=== PATIENT | male | born 1975 | race Caucasian/White ===

== ENCOUNTER 2017-05-14 07:56 | Emergency (ER) | payer BC, OTHER ==
[2017-05-14 08:10] VITALS: BP 141/98
[2017-05-14] MEDS ORDERED: Ciprofloxacin 0.3% OPTH.SOL* 2.5 ML BTL ONE (08:18)
[2017-05-14] MEDS ORDERED: Ciprofloxacin 0.3% OPTH.SOL* 2.5 ML BTL BOTH EYES ONE (08:19)
--- NOTE | 2017-05-14 08:20 | UC ---
Ear Complaint HPI - HPI Summary HPI Summary: right ear painful draining swollen----worsening over 3 days - History of Current Complaint Chief Complaint: UCEar Stated Complaint: EAR PAIN Time Seen by Provider: 05/14/17 08:17 Hx Obtained From: Patient Onset/Duration: Gradual Onset, Lasting Days - 3 Severity Initially: Mild Severity Currently: Moderate Pain Intensity: 7 Pain Scale Used: 0-10 Numeric Aggravating Factors: Nothing Alleviating Factors: Nothing Associated Signs/Symptoms: Positive: Hearing Loss, Swelling @ - right ear canal - Allergies/Home Medications Allergies/Adverse Reactions: Allergies Allergy/AdvReac Type Severity Reaction Status Date / Time No Known Allergies Allergy Verified 05/14/17 08:07 Home Medications: Home Medications Ibuprofen TAB* [Advil TAB*] 800 mg PO Q8H PRN 05/14/17 [History Confirmed ] Simvastatin TAB(NF) [Zocor(NF)] 10 mg PO DAILY 05/14/17 [History Confirmed 05/14] amLODIPine TAB* [Norvasc 5 mg TAB*] 10 mg PO DAILY 05/14/17 [History Confirmed 05/14/17] metFORMIN* [Glucophage 500 MG TAB *] 500 mg PO BID 05/14/17 [History Confirmed 05/14/17] PMH/Surg Hx/FS Hx/Imm Hx Previously Healthy: No Endocrine History: Diabetes, Dyslipidemia Cardiovascular History: Hypertension Psychological History: Depression - Surgical History Surgical History: Yes Surgery Procedure, Year, and Place: Left Knee Arthroscopy, 1991, [place]; Tonsilectomy, ~1979's - Social History Occupation: Employed Full-time Lives: With Family Alcohol Use: Occasionally Substance Use Type: None Smoking Status (MU): Former Smoker Type: Cigarettes Amount Used/How Often: 1/2-3/4 PPD Length of Time of Smoking/Using Tobacco: Since Age 16 Have You Smoked in the Last Year: Yes When Did the Patient Quit Smoking/Using Tobacco: 05/11/17 - Immunization History Most Recent Influenza Vaccination: Not the Season Review of Systems Constitutional: Fever - subjective, Chills Skin: Negative Eyes: Negative ENT: Ear Ache - right Respiratory: Negative Cardiovascular: Negative Gastrointestinal: Negative Genitourinary: Negative Motor: Negative Neurovascular: Negative Musculoskeletal: Negative Neurological: Negative Psychological: Negative Is Patient Immunocompromised?: Yes All Other Systems Reviewed And Are Negative: Yes Physical Exam Triage Information Reviewed: Yes Appearance: Well-Appearing, No Pain Distress, Well-Nourished Vital Signs: Initial Vital Signs Temp 99 F 05/14/17 08:05 Pulse 109 05/14/17 08:05 Resp 18 05/14/17 08:05 BP 141/98 05/14/17 08:05 Pulse Ox 100 05/14/17 08:05 Vital Signs Reviewed: Yes Eye Exam: Normal Eyes: Positive: Conjunctiva Clear ENT Exam: Normal ENT: Positive: Normal ENT inspection, Hearing grossly normal, Pharynx normal, Other: - right canal swollen with purulent drainage, left ear cerumen impaction- --wnl after cerumen removed. Negative: Nasal congestion, Nasal drainage, Tonsillar swelling, Tonsillar exudate, Trismus, Muffled/hoarse voice Dental Exam: Normal Neck exam: Normal Neck: Positive: Supple, Nontender Respiratory Exam: Normal Respiratory: Positive: Chest non-tender, Lungs clear, Normal breath sounds, No respiratory distress, No accessory muscle use Cardiovascular Exam: Normal Cardiovascular: Positive: RRR, No Murmur, Pulses Normal, Brisk Capillary Refill Musculoskeletal Exam: Normal Musculoskeletal: Positive: Strength Intact, ROM Intact, No Edema Neurological Exam: Normal Neurological: Positive: Alert, Muscle Tone Normal Psychological Exam: Normal Skin Exam: Normal Re-Evaluation - Re-Evaluation First Eval Change: Improved - ear wick in right ear-patient reports increase comfort, left ear cerumen impaction resolved Ear Complaint Course/Dx - Course Course Of Treatment: cipro drops (provided to patient) bid for 7 days, tylrnol, ibuprofen for pain - Differential Dx/Diagnosis Differential Diagnosis/HQI/PQRI: Cerumen Impaction, Otitis Externa, Otitis Media , URI Provider Diagnoses: right ear otitis externa, left ear resolved cerumen impaction Discharge - Discharge Plan Condition: Stable Disposition: HOME Patient Education Materials: Otitis Externa (ED), Cerumen Impaction (ED), Hypertension (ED) Referrals: Silvestre Pickens MD [Primary Care Provider] - If Needed Additional Instructions: 4 drops of Cipro (eye--ok to use in ears) drops in right ear 2 times a day for 7 days---The ear wick will fall out in the next few days just throw it away (on its own do not insert-)--
== END 2017-05-14 08:54 | disposition home or self-care (01) ==
LOC: UCCORT 07:56
DX: H60.91 Unspecified otitis externa, right ear (principal); H61.22 Impacted cerumen, left ear; E11.9 Type 2 diabetes mellitus without complications; Z79.84 Long term (current) use of oral hypoglycemic drugs; E78.5 Hyperlipidemia, unspecified; I10 Essential (primary) hypertension; F32.9 Major depressive disorder, single episode, unspecified; Z87.891 Personal history of nicotine dependence
CPT/HCPCS: 99203; A9270-GY; G0463

== ENCOUNTER 2018-06-23 10:51 | Emergency (ER) | payer BC, OTHER ==
[2018-06-23 11:15] VITALS: BP 142/98
--- NOTE | 2018-06-23 11:32 | UC ---
Ear Complaint HPI - HPI Summary HPI Summary: Patient presents complaining of progressive right ear pain and fullness. Patient states it felt little swollen to the washing with hydroperoxide over the last 5 days. Patient states progressively getting worse. Patient states his hearing feels muffled. Patient with some whitish drainage from the ear. No fevers or chills. No mastoid pain. No sore throat. No difficulty swallowing. No analgesia taken. Patient without history of similar. Patient went denies trauma. Patient is on metformin for diabetes. Patient tetanus is up-to-date. Medications reviewed - History of Current Complaint Chief Complaint: UCEar Stated Complaint: RT EAR COMPLAINT Time Seen by Provider: 06/23/18 11:27 Hx Obtained From: Patient Pain Intensity: 1 - Allergies/Home Medications Allergies/Adverse Reactions: Allergies Allergy/AdvReac Type Severity Reaction Status Date / Time No Known Allergies Allergy Verified 05/14/17 08:07 PMH/Surg Hx/FS Hx/Imm Hx Previously Healthy: Yes Endocrine History: Diabetes - Surgical History Surgical History: Yes Surgery Procedure, Year, and Place: Left Knee Arthroscopy, 1991, [place]; Tonsilectomy, ~ - Family History Known Family History: Positive: Other - Noncontributory - Social History Occupation: Employed Part-time, Student Lives: With Family Alcohol Use: Daily Substance Use Type: None Smoking Status (MU): Light Every Day Tobacco Smoker Type: Cigarettes Amount Used/How Often: 1/2-3/4 PPD Length of Time of Smoking/Using Tobacco: Since Age 16 Have You Smoked in the Last Year: Yes When Did the Patient Quit Smoking/Using Tobacco: 05/11/17 - Immunization History Most Recent Influenza Vaccination: Not the Season Review of Systems Constitutional: Negative Skin: Negative ENT: Ear Ache All Other Systems Reviewed And Are Negative: Yes Physical Exam - Summary Physical Exam Summary: Vital Signs Reviewed: Yes A+Ox3, no distress Eyes: Conjunctiva Clear, REUBEN. EOM intact and full ENT: Hearing grossly normal right ear: + edema and erythema right external auditory canal. no drainage. Unable to visualize canal. Placed a wick without difficulty left TM wnl, no matsoid pain turbinates wnl, mmoist, uvula midline , no exudate, no erythema Neck: Positive: Supple Respiratory: Positive: No respiratory distress, No accessory muscle use + CTA throughout no w/r Cardiovascular: RRR nl s1, s2 no m/r CBT <2 sec abd soft + BS nt/nd no guarding, no distension Musculoskeletal Exam: JENKINS x 4 without difficulty Strength Intact, ROM Intact Neurological: Positive: Alert, + sensation throughout Psychological: Positive: Normal Response To Family Skin: Positive: no rash, no ecchymosis Triage Information Reviewed: Yes Vital Signs: Initial Vital Signs Temp 98.1 F 06/23/18 11:08 Pulse 106 06/23/18 11:08 Resp 19 06/23/18 11:08 BP 142/98 06/23/18 11:08 Pulse Ox 100 06/23/18 11:08 Ear Complaint Course/Dx - Course Course Of Treatment: Patient presents with right external auditory canal edema and pain. Patient's been using her Prevacid for Nestor 5 days it feels getting worse. On exam canal is a canal is extremely edematous and erythematous. No mastoid pain. With pain with placed. We'll prescribe Ciprodex drops. Recommend strongly patient follow-up with your nose and throat. Patient incontinent information for ear nose and throat [facility]. Patient will call Monday. Motrin Tylenol. Strict return precautions. Patient comfortable agreement with plan. Pt with elevated BP - recommend recheck with pcp - Differential Dx/Diagnosis Provider Diagnoses: right otits externa Discharge - Sign-Out/Discharge Documenting (check all that apply): Patient Departure All imaging exams completed and their final reports reviewed: No Studies - Discharge Plan Condition: Stable Disposition: HOME Prescriptions: Ciproflox/Dexameth OTIC.SUSP* [Ciprodex OTIC.SUSP*] 4 drop RIGHT EAR BID #1 btl Patient Education Materials: Otitis Externa (ED) Referrals: Terence William MD [Medical Doctor] - ([facility]: [address] [place] [address] Av [phone] Call Monday for a follow-up appointment this week ) Silvestre Pickens MD [Primary Care Provider] - Additional Instructions: - Use ear drops exactly as prescribed - alternate ibuprofen (Advil. Motrin) and tylenol every 3 hours for pain. Take with food. do NOT take for more than 4-5 day - you had a wick placed in your canal to help with antibiotic treatment- this will need to be removed - Contact the ENT specialist - [phone] on Monday to schedule a follow-up appointment - Billing Disposition and Condition Condition: STABLE Disposition: Home
== END 2018-06-23 12:02 | disposition home or self-care (01) ==
LOC: UCCORT 10:51
DX: H60.91 Unspecified otitis externa, right ear (principal); E11.9 Type 2 diabetes mellitus without complications; F17.210 Nicotine dependence, cigarettes, uncomplicated; Z79.84 Long term (current) use of oral hypoglycemic drugs
CPT/HCPCS: 99212; G0463